=== PATIENT | female | born 1955 | race Hispanic/Latino ===

== ENCOUNTER 2016-10-04 14:42 | Outpatient (CLI) | payer MEDICARE ==
--- NOTE | 2016-10-04 15:42 | Magnetic Resonance Report ---
MRI OF THE BRAIN WITHOUT CONTRAST: HISTORY: Headaches PROCEDURE: Multiplanar, multisequence MR imaging of the brain without IV contrast was performed. FINDINGS: Mild nonspecific T2 signal abnormalities are identified in the periventricular white matter. This is most likely related to chronic small vessel disease. Otherwise, the brain parenchyma signal intensity and its colon-white interface are within normal limits. No evidence for acute ischemia, hemorrhage or mass. No chronic infarct or extra-axial fluid collection. The midline structures are central. The basal cisterns are patent. Normal ventricular size. The orbital cavities and sella turcica demonstrate no abnormality. The visualized paranasal sinuses and mastoid air cells are well aerated. IMPRESSION: Mild nonspecific chronic white matter changes which are likely appropriate for this persons age. Otherwise, unremarkable MR brain.
== END 2016-10-04 14:43 | disposition home or self-care (01) ==
LOC: MRI 14:42
PROVIDERS: ATTEND Psychiatry & Neurology Neurology
DX: I73.9 Peripheral vascular disease, unspecified (principal); R90.82 White matter disease, unspecified; R51 Headache
CPT/HCPCS: 70551

== ENCOUNTER 2019-08-08 16:01 | Emergency (ER) | payer MEDICARE ==
--- NOTE | 2019-08-08 17:56 | Emergency Department Report ---
ED Back Pain/Injury HPI - General Chief Complaint: Back Pain/Injury Stated Complaint: SLIPPED DISC Time Seen by Provider: 08/08/19 17:38 Source: patient Limitations: No Limitations - History of Present Illness Initial Comments: 63-year-old female presents to the emergency room complaining of lower back pain. 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 Patient denies any recent traumas or injuries. Patient reports that her pain is better with certain positions. Patient reports that she took ibuprofen 800 mg and Ambien last night. Patient denies any dysuria or hematuria. Patient does not have a primary care provider. MD Complaint: back pain Onset/Timin -: year(s) Similar Symptoms Previously: Yes Radiation: left leg, right leg Severity: moderate Severity scale (0 -10): 6 Quality: sharp, aching Consistency: intermittent Improves With: other (Certain positions) Worsens With: other (Certain movements) Associated Symptoms: denies other symptoms - Related Data Previous Rx's Medication Instructions Recorded Last Taken Type Meloxicam [Mobic] 15 mg PO QDAY #14 tablet 08/08/19 Unknown Rx Allergies Allergy/AdvReac Type Severity Reaction Status Date / Time Penicillins Allergy Anaphylaxis Unverified 10/04/16 14:43 Sulfa (Sulfonamide Allergy Shortness Unverified 10/04/16 14:42 Antibiotics) of Breath ED Review of Systems ROS: Stated complaint: SLIPPED DISC Other details as noted in HPI Comment: All other systems reviewed and negative ED Past Medical Hx - Past Medical History Previous Medical History?: Yes Additional medical history: ADD degenerative disc disease - Surgical History Past Surgical History?: No - Social History Smoking Status: Current Every Day Smoker Substance Use Type: None - Medications Home Medications: Home Medications Medication Instructions Recorded Confirmed Last Taken Type Meloxicam [Mobic] 15 mg PO QDAY #14 tablet 08/08/19 Unknown Rx ED Physical Exam - General Limitations: No Limitations General appearance: alert, in no apparent distress - Head Head exam: Present: atraumatic, normocephalic - Eye Eye exam: Present: normal appearance - ENT ENT exam: Present: mucous membranes moist - Respiratory Respiratory exam: Present: normal lung sounds bilaterally. Absent: respiratory distress - Cardiovascular Cardiovascular Exam: Present: regular rate, normal rhythm. Absent: systolic murmur, diastolic murmur, rubs, gallop - Back Exam Back exam: Present: paraspinal tenderness - Neurological Exam Neurological exam: Present: alert, oriented X3 - Psychiatric Psychiatric exam: Present: normal affect, normal mood - Skin Skin exam: Present: warm, dry, intact, normal color. Absent: rash ED Course Vital Signs 08/08/19 08/08/19 16:12 16:13 Temperature 98.6 F 98.6 F Pulse Rate 74 76 Respiratory 20 20 Rate Blood Pressure 147/87 Blood Pressure 147/87 [Left] O2 Sat by Pulse 98 100 Oximetry ED Medical Decision Making - Radiology Data Radiology results: report reviewed Print Report Referring Physician:ONOFRE SANTANAPatient Name:ESTUARDO PATTONPatient ID:[id number] of :[id number]:FemaleAccession:[id number] Date:[id number] Status:Finalized Findings [address] [address] XRay Report Signed Patient: ESTUARDO PATTON MR#: [id number] : 1955 Acct:[id number] Age/Sex: 63 / F ADM Date: 08/08/19 Loc: ED Attending Dr: Ordering Physician: AKIN LEY Date of Service: 08/08/19 Procedure(s): XR spine lumbosacral 2-3V Accession Number(s): [id number] cc: AKIN LEY Fluoro Time In Minutes: LUMBAR SPINE 2 VIEWS INDICATION / CLINICAL INFORMATION: Lower back pain. COMPARISON: None available. FINDINGS: Moderate scoliosis, convex to the left. Advanced degenerative change at L2-3, with loss of disc space and fairly prominent hypertrophic spurring of the adjacent vertebral endplates. No definite acute fracture or subluxation. Signer Name: Chip Isaacs MD Signed: 08/08/2019 6:46 PM Workstation Name: [id number] - Medical Decision Making 63-year-old female presents to the emergency room complaining of lower back pain. 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 Patient denies any recent traumas or injuries. Patient reports that her pain is better with certain positions. Patient reports that she took ibuprofen 800 mg and Ambien last night. Patient denies any dysuria or hematuria. Patient does not have a primary care provider. X-ray shows advanced degenerative disc disease. Patient will be sent home on Mobic and a referral to spine provider. Critical care attestation.: If time is entered above; I have spent that time in minutes in the direct care of this critically ill patient, excluding procedure time. ED Disposition Clinical Impression: Degenerative disc disease at L5-S1 level Disposition: DC-01 TO HOME OR SELFCARE Is pt being admited?: No Does the pt Need Aspirin: No Condition: Stable Instructions: Degenerative Disc Disease (ED) Additional Instructions: Do not take ibuprofen naproxen Aleve or Motrin with taken Mobic. It is very important to follow-up with a orthopedic spine provider. I have listed 1 below for your convenience. Prescriptions: Meloxicam [Mobic] 15 mg PO QDAY #14 tablet Referrals: [facility] [place] [Provider Group] - 3-5 Days [facility] [Provider Group] - 3-5 Days
--- NOTE | 2019-08-08 18:50 | XRay Report ---
LUMBAR SPINE 2 VIEWS INDICATION / CLINICAL INFORMATION: Lower back pain. COMPARISON: None available. FINDINGS: Moderate scoliosis, convex to the left. Advanced degenerative change at L2-3, with loss of disc space and fairly prominent hypertrophic spurr ing of the adjacent vertebral endplates. No definite acute fracture or subluxation. Signer Name: Chip Isaacs MD Signed: 08/08/2019 6:46 PM Workstation Name: [email or web address]
[2019-08-08 19:20] VITALS: BP 137/85
== END 2019-08-08 19:12 | disposition home or self-care (01) ==
LOC: ED 16:01
DX: M51.36 Other intervertebral disc degeneration, lumbar region (principal); F17.200 Nicotine dependence, unspecified, uncomplicated; Z79.899 Other long term (current) drug therapy; Z88.0 Allergy status to penicillin; Z88.2 Allergy status to sulfonamides
CPT/HCPCS: 72100